=== PATIENT | male | born 1990 | race Caucasian/White ===

== ENCOUNTER 2019-01-26 14:37 | Inpatient (IN) | payer MEDICAID, SELFPAY ==
[2019-01-26 15:00] VITALS: BMI 26.2
[2019-01-26 15:03] VITALS: BMI 26.2
[2019-01-26 15:09] VITALS: BP 128/67; PULSE 103; RESP 18; TEMP 36.5; O2SAT 100
[2019-01-26 15:10] VITALS: BP 128/67; PULSE 103; RESP 18; TEMP 36.5
--- NOTE | 2019-01-26 15:24 | PCM.HP.STD ---
<Sheldon Cali - Last Filed: 01/26/19 15:24> Problem List (1) Heroin withdrawal Status: Acute (2) Hepatitis C Status: Chronic (3) Nicotine abuse Status: Chronic (4) Crack cocaine use Status: Chronic History of Present Illness Date of Admission: 01/26/19 Chief Complaint: heroin withdrawal The patient is a 28 year old M with past medical history of many years of heroin abuse, crack cocaine abuse, nicotine abuse, hepatitis C, untreated, who presented to the medical stabilization program for drug abuse requesting help with detox for heroin, currently in opiate withdrawal. His current symptoms include body aches and pains, nausea, diarrhea. He has been using heroin since getting out of [facility] about 6 weeks ago. He is using about one third of a gram per day. His last use was about 7 PM last night he also used crack last night about 1 hit, however he normally does not use this. He also smokes cigarettes about 1 and 1/2 packs/day. He denies alcohol use or other drug use. He last went through detox in 2009 at [facility]. He was sober about 6 months at the [facility]. He is currently homeless and is considering a [facility] house at discharge. [] Past Medical History Past Medical History (Chronic Problems): Chronic Problems Hepatitis C (Chronic) Nicotine abuse (Chronic) Crack cocaine use (Chronic) Allergies No Known Allergies Allergy (Verified 01/26/19 15:00) Home Medications: Ambulatory Orders Medication Instructions Recorded NK 01/26/19 Surgical History: no surgical history Psychiatric History: No pertinent psych hx Lives: Homeless Smoking Status: Current every day smoker Tobacco Use: Cigarettes Alcohol: None Drugs: Cocaine, Heroin - *Family History Maternal History Items: Cancer - colon Paternal History Items: Heart Disease Review of Systems Constitutional: Denies: Chills, Fever, Weight Change HEENT: Denies: Head Aches, Sinus Congestion, Sinus Drainage Cardiovascular: Denies: Chest Pain, Palpitations Respiratory: Denies: Cough, Shortness of breath at rest, Sputum production Gastrointestinal: Reports: Diarrhea, Nausea. Denies: Abdominal Pain, Vomiting Genitourinary: Denies: Dysuria Musculoskeletal: Reports: - - all over body aches. Denies: Joint Pain, Joint Tenderness Skin: Denies: Rash, Wounds Neurological: Denies: Numbness, Tingling, Focal weakness Psychiatric: Denies: Anxiety, Depression, Homicidal Ideations, Suicidal Ideations Hematologic/ Lymphatic: Denies: Easy Bruising, Easy Bleeding VTE Information - Inpt Only VTE Present on Admission: No VTE Mechan Device Prophylaxis: None VTE Pharm Prophylaxis ordered?: No Reason prophylaxis not ordered:: Procedure Not Indicated Patient Problems: Active and Suspected Problems Heroin withdrawal (Acute) - Physical Exam General: Alert, Oriented x3, Cooperative HEENT: Atraumatic, PERRLA, EOMI, Normocephalic Neck: Supple, No JVD, Negative Carotid Bruits Lungs: Clear to auscultation, Normal air movement Cardiovascular: Regular rate, No murmurs Abdomen: Bowel Sounds Present, Soft, Non Tender Extremities: No edema, Capillary Refill Less than 3 Seconds Skin: No rashes, No breakdown Musculoskeletal: No Tenderness to Palpation of Joints or Extremities Neurological: Cranial nerves II-XII grossly intact Psych/Mental Status: Normal Affect, Appropriate Vital Signs Temp Pulse Resp BP Pulse Ox 97.7 F L 103 H 18 128/67 H 100 01/26/19 15:09 01/26/19 15:09 01/26/19 15:09 01/26/19 15:09 01/26/19 15:09 Oxygen Delivery Method Room Air Weight: 198 lb 11.2 oz Body Mass Index (BMI) 26.2 Assessment/Plan All Active Problems Heroin withdrawal (Acute) 1. Acute opiate withdrawal-heroin. Uses 1/3 g/day, last use 7 PM, current symptoms include all over body aches, nausea, vomiting. Initiate withdrawal protocol with Subutex. He used crack last night as well however he normally does not use this. 2. Nicotine abuse-smokes 1/2 pack/day. Request patch. 3. History of hep C-not treated Medical stabilization day 1 of 4. This patient was seen by Sheldon Cali PA-C under the supervision of Doctor Marcus. <Levy Velazquez - Last Filed: 01/26/19 16:39> History of Present Illness The patient is a 28 year old M [] Past Medical History Allergies No Known Allergies Allergy (Verified 01/26/19 15:00) - Physical Exam Vital Signs Temp Pulse Resp BP Pulse Ox 97.7 F L 103 H 18 128/67 H 100 01/26/19 15:10 01/26/19 15:10 01/26/19 15:10 01/26/19 15:10 01/26/19 15:09 Oxygen Delivery Method Room Air Weight: 198 lb 11.2 oz Body Mass Index (BMI) 26.2 Code Visit Addendum: Dr. Velazquez I personally examined the patient and reviewed the chart. I agree with the above. 28-year-old male with a history of heroin abuse, crack cocaine abuse, nicotine abuse as well as hepatitis C who presents for opioid withdrawal. His last use was a third of a gram yesterday and is currently scoring about a 16 on CINA. Will proceed with [facility] opioid withdrawal protocol. Inpatient E&M: 47174 Init Hosp L2
--- NOTE | 2019-01-26 15:30 | HP.PCM_ITS ---
<Sheldon Cali - Last Filed: 01/26/19 15:24> Problem List (1) Heroin withdrawal Status: Acute (2) Hepatitis C Status: Chronic (3) Nicotine abuse Status: Chronic (4) Crack cocaine use Status: Chronic History of Present Illness Date of Admission: 01/26/19 Chief Complaint: heroin withdrawal The patient is a 28 year old M with past medical history of many years of heroin abuse, crack cocaine abuse, nicotine abuse, hepatitis C, untreated, who presented to the medical stabilization program for drug abuse requesting help with detox for heroin, currently in opiate withdrawal. His current symptoms include body aches and pains, nausea, diarrhea. He has been using heroin since getting out of residential about 6 weeks ago. He is using about one third of a gram per day. His last use was about 7 PM last night he also used crack last night about 1 hit, however he normally does not use this. He also smokes cigarettes about 1 and 1/2 packs/day. He denies alcohol use or other drug use. He last went through detox in 2009 at [facility]. He was sober about [facility]. He is currently homeless and is considering a nursing home house at discharge. [] Past Medical History Past Medical History (Chronic Problems): Chronic Problems Hepatitis C (Chronic) Nicotine abuse (Chronic) Crack cocaine use (Chronic) Allergies No Known Allergies Allergy (Verified 01/26/19 15:00) Home Medications: Ambulatory Orders Medication Instructions Recorded NK 01/26/19 Surgical History: no surgical history Psychiatric History: No pertinent psych hx Lives: Homeless Smoking Status: Current every day smoker Tobacco Use: Cigarettes Alcohol: None Drugs: Cocaine, Heroin - *Family History Maternal History Items: Cancer - colon Paternal History Items: Heart Disease Review of Systems Constitutional: Denies: Chills, Fever, Weight Change HEENT: Denies: Head Aches, Sinus Congestion, Sinus Drainage Cardiovascular: Denies: Chest Pain, Palpitations Respiratory: Denies: Cough, Shortness of breath at rest, Sputum production Gastrointestinal: Reports: Diarrhea, Nausea. Denies: Abdominal Pain, Vomiting Genitourinary: Denies: Dysuria Musculoskeletal: Reports: - - all over body aches. Denies: Joint Pain, Joint Tenderness Skin: Denies: Rash, Wounds Neurological: Denies: Numbness, Tingling, Focal weakness Psychiatric: Denies: Anxiety, Depression, Homicidal Ideations, Suicidal Ideations Hematologic/ Lymphatic: Denies: Easy Bruising, Easy Bleeding VTE Information - Inpt Only VTE Present on Admission: No VTE Mechan Device Prophylaxis: None VTE Pharm Prophylaxis ordered?: No Reason prophylaxis not ordered:: Procedure Not Indicated Patient Problems: Active and Suspected Problems Heroin withdrawal (Acute) - Physical Exam General: Alert, Oriented x3, Cooperative HEENT: Atraumatic, PERRLA, EOMI, Normocephalic Neck: Supple, No JVD, Negative Carotid Bruits Lungs: Clear to auscultation, Normal air movement Cardiovascular: Regular rate, No murmurs Abdomen: Bowel Sounds Present, Soft, Non Tender Extremities: No edema, Capillary Refill Less than 3 Seconds Skin: No rashes, No breakdown Musculoskeletal: No Tenderness to Palpation of Joints or Extremities Neurological: Cranial nerves II-XII grossly intact Psych/Mental Status: Normal Affect, Appropriate Vital Signs Temp Pulse Resp BP Pulse Ox 97.7 F L 103 H 18 128/67 H 100 01/26/19 15:09 01/26/19 15:09 01/26/19 15:09 01/26/19 15:09 01/26/19 15:09 Oxygen Delivery Method Room Air Weight: 198 lb 11.2 oz Body Mass Index (BMI) 26.2 Assessment/Plan All Active Problems Heroin withdrawal (Acute) 1. Acute opiate withdrawal-heroin. Uses 1/3 g/day, last use 7 PM, current symptoms include all over body aches, nausea, vomiting. Initiate withdrawal protocol with Subutex. He used crack last night as well however he normally does not use this. 2. Nicotine abuse-smokes 1/2 pack/day. Request patch. 3. History of hep C-not treated Medical stabilization day 1 of 4. This patient was seen by Sheldon Cali PA-C under the supervision of Doctor Marcus. <Levy Velazquez - Last Filed: 01/26/19 16:39> History of Present Illness The patient is a 28 year old M [] Past Medical History Allergies No Known Allergies Allergy (Verified 01/26/19 15:00) - Physical Exam Vital Signs Temp Pulse Resp BP Pulse Ox 97.7 F L 103 H 18 128/67 H 100 01/26/19 15:10 01/26/19 15:10 01/26/19 15:10 01/26/19 15:10 01/26/19 15:09 Oxygen Delivery Method Room Air Weight: 198 lb 11.2 oz Body Mass Index (BMI) 26.2 Code Visit Addendum: Dr. Velazquez I personally examined the patient and reviewed the chart. I agree with the above. 28-year-old male with a history of heroin abuse, crack cocaine abuse, nicotine abuse as well as hepatitis C who presents for opioid withdrawal. His last use was a third of a gram yesterday and is currently scoring about a 16 on CINA. Will proceed with [facility] opioid withdrawal protocol. Inpatient E&M: 54697 Init Hosp L2
[2019-01-26] MEDS: Dicyclomine 10 MG Capsule 20 MG PO (16:05)
[2019-01-26] MEDS: Methocarbamol 750 MG Tablet PO ×2 (16:05→23:44)
[2019-01-26] MEDS: Buprenorphine HCl 2 MG TAB.SUBL SL ×2 (16:05→23:44)
[2019-01-26] MEDS: cloNIDine HCl 0.1 MG Tablet PO ×2 (16:05→21:02)
--- NOTE | 2019-01-26 16:54 | CHAPLAIN ---
introduction to patient at request of [facility] staff member; pt agrees to talk more tomorrow after he gets settled into room; pt looking for spiritual and emotional support in recovery
[2019-01-26 20:23] VITALS: BP 134/82; PULSE 84; RESP 16; TEMP 36.8
[2019-01-26] MEDS: hydrOXYzine PAM 25 MG Capsule 50 MG PO (23:44)
[2019-01-27] VITALS (9 sets, daily range): BP systolic 112–134; BP diastolic 67–79; PULSE 70–85; RESP 12–20; TEMP 36.2–36.8; O2SAT 100
[2019-01-27] MEDS: Buprenorphine HCl 2 MG TAB.SUBL SL ×3 (07:19→23:27)
[2019-01-27] MEDS: Pramipexole Di-HCl 0.25 MG Tablet PO ×2 (09:25→23:27)
[2019-01-27] MEDS: Methocarbamol 750 MG Tablet PO ×3 (09:25→23:27)
[2019-01-27] MEDS: hydrOXYzine PAM 25 MG Capsule 50 MG PO ×3 (09:27→23:27)
--- NOTE | 2019-01-27 09:34 | PN_ITS ---
Patient Problems: Active and Suspected Problems Heroin withdrawal (Acute) Subjective: Feels better. Vitals/I&O's: Vital Signs Temp Pulse Resp BP Pulse Ox 36.6 C 84 13 124/78 H 100 01/27/19 09:14 01/27/19 09:14 01/27/19 09:14 01/27/19 09:14 01/27/19 09:10 Oxygen Delivery Method Room Air Weight: 90.129 kg Body Mass Index (BMI) 26.2 Intake and Output for Last 24 Hours 01/25/19 01/26/19 01/27/19 23:59 23:59 23:59 Intake Total 1180 / 1180 440 / 440 Balance 1180 / 1180 440 / 440 General: Alert, No apparent distress HEENT: Atraumatic, Normocephalic Oral: Moist Mucosa, No Gingival or Mucosal Lesions/ Ulcerations Neck: No Nodes, Thyroid Normal Size and Texture Lungs: Clear to auscultation, Normal air movement, No rhonchi, No wheeze Cardiovascular: Regular rate, Regular Rhythm, Normal S1, Normal S2, No murmurs Abdomen: Bowel Sounds Present, Soft, Non Tender, Non-Distended, No Hepato- splenomegaly Extremities: No edema, No Calf Tenderness Psych/Mental Status: Normal Affect, Appropriate Current Medications Buprenorphine HCl (Buprenorphine Hcl) 4 mg SL Q8H ANDREY; Taper Stop: 01/29/19 19:44 Last Admin: 01/27/19 07:19 Dose: 4 mg Clonidine (Catapres) 0.1 mg PO Q2H PRN PRN PRN Reason: Hot/Cold Sweats or Anxiety Last Admin: 01/26/19 21:02 Dose: 0.1 mg Dicyclomine HCl (Bentyl) 20 mg PO Q6H PRN PRN PRN Reason: Abdomnial Discomfort Last Admin: 01/26/19 16:05 Dose: 20 mg Hydroxyzine Pamoate (Vistaril Pamoate Capsule) 50 mg PO Q6H PRN PRN PRN Reason: Mild Anxiety Last Admin: 01/27/19 09:27 Dose: 50 mg Magnesium Hydroxide (Milk Of Magnesia) 30 ml PO DAILY PRN PRN PRN Reason: Constipation Methocarbamol (Methocarbamol) 750 mg PO Q6H PRN PRN PRN Reason: Muscle Aches Last Admin: 01/27/19 09:25 Dose: 750 mg Nicotine (Nicoderm Cq (Pbkc)) 21 mg TRANSDERM. DAILY ANDREY Last Admin: 01/27/19 09:28 Dose: 21 mg Pramipexole Dihydrochloride (Mirapex) 0.25 mg PO Q12H PRN PRN PRN Reason: Restless Legs Last Admin: 01/27/19 09:25 Dose: 0.25 mg Medical Necessity - Tobacco Use Smoking Status: Current every day smoker Tobacco Use: Cigarettes Assessment/Plan All Active Problems Heroin withdrawal (Acute) 1. Acute heroin withdrawal: Patient on buprenorphine taper for management. Patient have other medications to help with somatic complaints. [facility] to assist with outpatient follow-up upon discharge. Code Visit Inpatient E&M: 13229 Subs Hosp L2
[2019-01-27] MEDS: cloNIDine HCl 0.1 MG Tablet PO ×4 (12:28→23:27)
[2019-01-28 02:20] VITALS: BP 111/72; PULSE 87; RESP 16; TEMP 36.5
[2019-01-28] MEDS: cloNIDine HCl 0.1 MG Tablet PO ×3 (02:22→19:43)
[2019-01-28] MEDS: Buprenorphine HCl 2 MG TAB.SUBL SL ×2 (06:56→19:40)
[2019-01-28 07:26] VITALS: BP 111/67; PULSE 70; RESP 16; TEMP 36.5; O2SAT 100
[2019-01-28] MEDS: hydrOXYzine PAM 25 MG Capsule 50 MG PO ×2 (07:34→19:43)
[2019-01-28] MEDS: Methocarbamol 750 MG Tablet PO ×2 (07:34→14:08)
[2019-01-28] MEDS: Dicyclomine 10 MG Capsule 20 MG PO (07:34)
--- NOTE | 2019-01-28 09:30 | PN_ITS ---
Patient Problems: Active and Suspected Problems Heroin withdrawal (Acute) Subjective: Feeling somewhat better, though still with myalgias, nausea, restless legs. Vitals/I&O's: Vital Signs Temp Pulse Resp BP Pulse Ox 36.5 C L 70 16 111/67 100 01/28/19 07:26 01/28/19 07:26 01/28/19 07:26 01/28/19 07:26 01/28/19 07:26 Oxygen Delivery Method Room Air Weight: 90.129 kg Body Mass Index (BMI) 26.2 Intake and Output for Last 24 Hours 01/26/19 01/27/19 01/28/19 23:59 23:59 23:59 Intake Total 1180 / 1180 440 / 440 Balance 1180 / 1180 440 / 440 General: Alert, No apparent distress HEENT: Atraumatic, Normocephalic Oral: Moist Mucosa, No Gingival or Mucosal Lesions/ Ulcerations Neck: No Nodes, Thyroid Normal Size and Texture Lungs: Clear to auscultation, Normal air movement, No rhonchi, No wheeze Cardiovascular: Regular rate, Regular Rhythm, Normal S1, Normal S2 Abdomen: Bowel Sounds Present, Soft, Non Tender, Non-Distended, No Hepato- splenomegaly Extremities: No edema, No Calf Tenderness Skin: No rashes, No breakdown Musculoskeletal: No Tenderness to Palpation of Joints or Extremities, No Muscle Wasting Psych/Mental Status: Normal Affect, Appropriate Current Medications Buprenorphine HCl (Buprenorphine Hcl) 2 mg SL Q12H ANDREY; Taper Stop: 01/29/19 19:44 Last Admin: 01/28/19 06:56 Dose: 2 mg Clonidine (Catapres) 0.1 mg PO Q2H PRN PRN PRN Reason: Hot/Cold Sweats or Anxiety Last Admin: 01/28/19 02:22 Dose: 0.1 mg Dicyclomine HCl (Bentyl) 20 mg PO Q6H PRN PRN PRN Reason: Abdomnial Discomfort Last Admin: 01/28/19 07:34 Dose: 20 mg Hydroxyzine Pamoate (Vistaril Pamoate Capsule) 50 mg PO Q6H PRN PRN PRN Reason: Mild Anxiety Last Admin: 01/28/19 07:34 Dose: 50 mg Magnesium Hydroxide (Milk Of Magnesia) 30 ml PO DAILY PRN PRN PRN Reason: Constipation Methocarbamol (Methocarbamol) 750 mg PO Q6H PRN PRN PRN Reason: Muscle Aches Last Admin: 01/28/19 07:34 Dose: 750 mg Nicotine (Nicoderm Cq (Pbkc)) 21 mg TRANSDERM. DAILY ANDREY Last Admin: 01/28/19 07:34 Dose: 21 mg Pramipexole Dihydrochloride (Mirapex) 0.25 mg PO Q12H PRN PRN PRN Reason: Restless Legs Last Admin: 01/27/19 23:27 Dose: 0.25 mg Medical Necessity - Tobacco Use Smoking Status: Current every day smoker Tobacco Use: Cigarettes Assessment/Plan All Active Problems Heroin withdrawal (Acute) 1. Acute heroin withdrawal: Patient on buprenorphine taper for management. Patient have other medications to help with somatic complaints. [facility] to assist with outpatient follow-up upon discharge. Anticipate discharge on 01/29. Code Visit Inpatient E&M: 31750 Subs Hosp L2
[2019-01-28 14:04] VITALS: BP 113/74; PULSE 86; RESP 16; TEMP 36.8; O2SAT 100
[2019-01-28] MEDS: Pramipexole Di-HCl 0.25 MG Tablet PO (14:08)
[2019-01-28 20:00] VITALS: BP 114/61; PULSE 80; RESP 18; TEMP 36.9
[2019-01-29] MEDS: Buprenorphine HCl 2 MG TAB.SUBL SL (06:51)
--- NOTE | 2019-01-29 07:52 | PCM.DC ---
- Discharge Diagnoses Current Active Problems: Current Active and Chronic Problems Heroin withdrawal (Acute) Hepatitis C (Chronic) Nicotine abuse (Chronic) Crack cocaine use (Chronic) You will use the following diet at home:: No restrictions Your food should be the consistency of: Regular Allergies/Adverse Reactions: Allergies No Known Allergies Allergy (Verified 01/26/19 15:00) Medications to take at Discharge Ibuprofen 2 - 3 mg PO Q6H PRN #1 tablet 01/29/19 The following prescriptions were given: Ibuprofen 2 - 3 mg PO Q6H PRN #1 tablet PRN Reason: pain. muscle aches. Test Results: Test results from this visit will be discussed in further detail at your follow-up appointment, if applicable. Please Follow Up With: [facility] When: this week Proposed Discharge Date: 01/29/19
--- NOTE | 2019-01-29 07:55 | DCINST_ITS ---
- Discharge Diagnoses Current Active Problems: Current Active and Chronic Problems Heroin withdrawal (Acute) Hepatitis C (Chronic) Nicotine abuse (Chronic) Crack cocaine use (Chronic) You will use the following diet at home:: No restrictions Your food should be the consistency of: Regular Allergies/Adverse Reactions: Allergies No Known Allergies Allergy (Verified 01/26/19 15:00) Medications to take at Discharge Ibuprofen 2 - 3 mg PO Q6H PRN #1 tablet 01/29/19 The following prescriptions were given: Ibuprofen 2 - 3 mg PO Q6H PRN #1 tablet PRN Reason: pain. muscle aches. Test Results: Test results from this visit will be discussed in further detail at your follow- up appointment, if applicable. Please Follow Up With: [facility] When: this week Proposed Discharge Date: 01/29/19
--- NOTE | 2019-01-29 07:55 | PCM.DC.SUM ---
Discharge Date and Diagnosis - Problem List Patient Problems: Active and Suspected Problems Heroin withdrawal (Acute) Date of Admission: 01/26/19 Date of Discharge: 01/29/19 - Primary Discharge Diagnosis Active and Suspected Problems Heroin withdrawal (Acute) - Secondary Discharge Diagnosis Chronic Problems Hepatitis C (Chronic) Nicotine abuse (Chronic) Crack cocaine use (Chronic) Hospital Course and Treatment Operations: None Procedures: None Summary of Care Provided: The patient is a 28 year old M who is an IV heroin user. Presents Via [facility] for acute heroin withdrawal. Patient was initiated on buprenorphine taper which stopped this morning. Patient did have some myalgias, restless leg but symptoms though still ongoing, are better. Patient discussed with [facility] about outpatient options and the plan is for him to go to the [facility] in [place]. Today, the patient will go to his mother's apartment and next week will go to the [facility]. [] Patient Problems: Active and Suspected Problems Heroin withdrawal (Acute) - Physical Exam General: Alert, No apparent distress HEENT: Atraumatic, Normocephalic Neurological: Coordination normal Psych/Mental Status: Normal Affect, Appropriate Vital Signs Temp Pulse Resp BP Pulse Ox 36.9 C 80 18 114/61 100 01/28/19 20:00 01/28/19 20:00 01/28/19 20:00 01/28/19 20:00 01/28/19 14:04 Oxygen Delivery Method Room Air Weight: 90.129 kg Body Mass Index (BMI) 26.2 Intake and Output for Last 24 Hours 01/27/19 01/28/19 01/29/19 23:59 23:59 23:59 Intake Total 440 / 440 Balance 440 / 440 Discharge Diet: No Restrictions Discharge Activity: Return to Normal Activity Home Medications: Medications to take at Discharge Ibuprofen 2 - 3 mg PO Q6H PRN #1 tablet 01/29/19 Following Prescrptions Were Given to Patient: Ibuprofen 2 - 3 mg PO Q6H PRN #1 tablet PRN Reason: pain. muscle aches. Please Follow Up With: [facility] When: this week Disposition: Home Minutes spent on discharge:: 24 Patient Condition:: Good Medical Necessity - Tobacco Use Smoking Status: Current every day smoker Tobacco Use: Cigarettes Meaningful Use Info Meaningful Use Diagnoses (Choose all that apply): None applicable Code Visit Inpatient E&M: 75083 Disch Hosp
[2019-01-29 08:13] VITALS: BP 117/71; PULSE 82; RESP 16; TEMP 36.8; O2SAT 100
--- NOTE | 2019-01-29 08:33 | NURSING ---
[facility] CALLED AND TRANSPORTATION SET UP FOR PT TO BE DISCHARGED. [employer] TIME BETWEEN NOW AND 1123. INFORMED [facility] TO CALL PT AND CHARGE NURSE WHEN TAXI ARRIVES SO PT CAN BE TAKEN TO DOOR
== END 2019-01-29 09:04 | disposition home or self-care (01) | DRG 773 ==
LOC: MS2 01-27 07:10 → MS3 01-28 16:35
PROVIDERS: Admitting Provider Family Medicine; Referring Provider Family Medicine
DX: F11.23 Opioid dependence with withdrawal (principal); F17.210 Nicotine dependence, cigarettes, uncomplicated; B19.20 Unspecified viral hepatitis C without hepatic coma; F14.90 Cocaine use, unspecified, uncomplicated

== ENCOUNTER 2019-03-20 10:36 | Observation (INO) | payer MEDICAID, SELFPAY ==
[2019-03-20 10:52] VITALS: BMI 24.7; BMI 24.8
[2019-03-20 11:03] VITALS: BP 122/51; PULSE 73; RESP 18; TEMP 36.7
--- NOTE | 2019-03-20 11:38 | PCM.HP.STD ---
Problem List (1) Heroin withdrawal Status: Acute History of Present Illness Date of Admission: 03/20/19 Chief Complaint: nausea. The patient is a 29 year old M presents seeking treatment for heroin withdrawal. Last use was at 0100 today. Since then, he has been nauseated, tremulous, restless legs, yawns, rhinitis. Patient continues to inject heroin. Similar symptoms when he was in for heroin withdrawal in January.[] Past Medical History Past Medical History (Chronic Problems): Chronic Problems Hepatitis C (Chronic) Nicotine abuse (Chronic) Crack cocaine use (Chronic) Allergies No Known Allergies Allergy (Verified 01/26/19 15:00) Home Medications: Ambulatory Orders Medication Instructions Recorded Ibuprofen 2 - 3 mg PO Q6H PRN #1 tablet 01/29/19 Surgical History: no surgical history Psychiatric History: No pertinent psych hx Smoking Status: Heavy Smoker (>10/day) Tobacco Use: Cigarettes Alcohol: None Drugs: Marijuana, - - methamphetamines - *Family History Maternal History Items: Cancer - colon Paternal History Items: Heart Disease Review of Systems Constitutional: Reports: Chills. Denies: Anorexia, Fever Eyes: Denies: Blurred vision, Double vision HEENT: Denies: Head Aches, Sinus Congestion, Sinus Drainage Cardiovascular: Denies: Chest Pain, Palpitations Respiratory: Denies: Cough, Shortness of breath at rest, Sputum production Gastrointestinal: Denies: Abdominal Pain, Nausea, Vomiting Genitourinary: Denies: Dysuria Musculoskeletal: Denies: Joint Pain, Joint Tenderness Skin: Denies: Dryness, Jaundice Neurological: Denies: Numbness, Tingling, Focal weakness Psychiatric: Denies: Anxiety, Depression Hematologic/ Lymphatic: Denies: Easy Bruising, Easy Bleeding, Hx of blood clot VTE Information - Inpt Only VTE Present on Admission: No VTE Mechan Device Prophylaxis: None VTE Pharm Prophylaxis ordered?: No Reason prophylaxis not ordered:: Procedure Not Indicated - Physical Exam General: Alert, Cooperative, No apparent distress HEENT: Atraumatic, Normocephalic Oral: Moist Mucosa, No Gingival or Mucosal Lesions/ Ulcerations Neck: No Nodes, Thyroid Normal Size and Texture Lungs: Clear to auscultation, Normal air movement, No rhonchi, No wheeze Cardiovascular: Regular rate, Regular Rhythm, Normal S1, Normal S2, No murmurs Abdomen: Bowel Sounds Present, Soft, Non Tender, Non-Distended, No Hepato-splenomegaly Extremities: No edema, No Calf Tenderness Skin: No rashes, No breakdown, - - numerous tattoos. Psych/Mental Status: Normal Affect, Appropriate Weight: 85.275 kg Body Mass Index (BMI) 24.7 Assessment/Plan All Active Problems Heroin withdrawal (Acute) 1. acute heroin withdrawal start buprenorphine taper other medications to help with somatic complaints [facility] to facilitate outpt treatment 2. polysubstance abuse complicates long-term abstinence 3. tobacco abuse nicotine patch. 4. VTE proph: not indicated. low risk. Code Visit Inpatient E&M: 74570 Init Hosp L2
--- NOTE | 2019-03-20 11:42 | HP.PCM_ITS ---
Problem List (1) Heroin withdrawal Status: Acute History of Present Illness Date of Admission: 03/20/19 Chief Complaint: nausea. The patient is a 29 year old M presents seeking treatment for heroin withdrawal. Last use was at 0100 today. Since then, he has been nauseated, tremulous, restless legs, yawns, rhinitis. Patient continues to inject heroin. Similar symptoms when he was in for heroin withdrawal in January.[] Past Medical History Past Medical History (Chronic Problems): Chronic Problems Hepatitis C (Chronic) Nicotine abuse (Chronic) Crack cocaine use (Chronic) Allergies No Known Allergies Allergy (Verified 01/26/19 15:00) Home Medications: Ambulatory Orders Medication Instructions Recorded Ibuprofen 2 - 3 mg PO Q6H PRN #1 tablet 01/29/19 Surgical History: no surgical history Psychiatric History: No pertinent psych hx Smoking Status: Heavy Smoker (>10/day) Tobacco Use: Cigarettes Alcohol: None Drugs: Marijuana, - - methamphetamines - *Family History Maternal History Items: Cancer - colon Paternal History Items: Heart Disease Review of Systems Constitutional: Reports: Chills. Denies: Anorexia, Fever Eyes: Denies: Blurred vision, Double vision HEENT: Denies: Head Aches, Sinus Congestion, Sinus Drainage Cardiovascular: Denies: Chest Pain, Palpitations Respiratory: Denies: Cough, Shortness of breath at rest, Sputum production Gastrointestinal: Denies: Abdominal Pain, Nausea, Vomiting Genitourinary: Denies: Dysuria Musculoskeletal: Denies: Joint Pain, Joint Tenderness Skin: Denies: Dryness, Jaundice Neurological: Denies: Numbness, Tingling, Focal weakness Psychiatric: Denies: Anxiety, Depression Hematologic/ Lymphatic: Denies: Easy Bruising, Easy Bleeding, Hx of blood clot VTE Information - Inpt Only VTE Present on Admission: No VTE Mechan Device Prophylaxis: None VTE Pharm Prophylaxis ordered?: No Reason prophylaxis not ordered:: Procedure Not Indicated - Physical Exam General: Alert, Cooperative, No apparent distress HEENT: Atraumatic, Normocephalic Oral: Moist Mucosa, No Gingival or Mucosal Lesions/ Ulcerations Neck: No Nodes, Thyroid Normal Size and Texture Lungs: Clear to auscultation, Normal air movement, No rhonchi, No wheeze Cardiovascular: Regular rate, Regular Rhythm, Normal S1, Normal S2, No murmurs Abdomen: Bowel Sounds Present, Soft, Non Tender, Non-Distended, No Hepato- splenomegaly Extremities: No edema, No Calf Tenderness Skin: No rashes, No breakdown, - - numerous tattoos. Psych/Mental Status: Normal Affect, Appropriate Weight: 85.275 kg Body Mass Index (BMI) 24.7 Assessment/Plan All Active Problems Heroin withdrawal (Acute) 1. acute heroin withdrawal * start buprenorphine taper * other medications to help with somatic complaints * [facility] to facilitate outpt treatment 2. polysubstance abuse * complicates long-term abstinence 3. tobacco abuse * nicotine patch. 4. VTE proph: not indicated. low risk. Code Visit Inpatient E&M: 28495 Init Hosp L2
[2019-03-20] MEDS: Buprenorphine HCl 2 MG TAB.SUBL 4 MG SL (12:21)
--- NOTE | 2019-03-20 13:40 | PCM.DC.SUM ---
Discharge Date and Diagnosis Date of Admission: 03/20/19 Date of Discharge: 03/20/19 - Secondary Discharge Diagnosis Chronic Problems Hepatitis C (Chronic) Nicotine abuse (Chronic) Crack cocaine use (Chronic) Hospital Course and Treatment Operations: None Procedures: None Summary of Care Provided: The patient is a 29 year old M presents seeking treatment for heroin withdrawal. Patient was brought in Via [facility] and patient was seen by me and talked about buprenorphine as well as other medications to help another somatic issues. Patient left AGAINST MEDICAL ADVICE. [] - Physical Exam Weight: 85.275 kg Body Mass Index (BMI) 24.7 Laboratory Tests Past 24 Hrs 03/20/19 03/20/19 12:15 13:13 Sodium Cancelled Pending Potassium Cancelled Pending Chloride Cancelled Pending Carbon Dioxide Cancelled Pending Anion Gap Cancelled Pending BUN Cancelled Pending Creatinine Cancelled Pending Estim Creat Clear Calc Cancelled Est GFR (MDRD) Af Amer Cancelled Pending Est GFR (MDRD) Non-Af Cancelled Pending BUN/Creatinine Ratio Cancelled Pending Glucose Cancelled Pending Calcium Cancelled Pending Total Bilirubin Cancelled Pending AST Cancelled Pending ALT Cancelled Pending Alkaline Phosphatase Cancelled Pending Total Protein Cancelled Pending Albumin Cancelled Pending Globulin Cancelled Albumin/Globulin Ratio Cancelled Home Medications: Medications to take at Discharge Ibuprofen 2 - 3 mg PO Q6H PRN #1 tablet 01/29/19 Primary Care Physician: Care Physician,No Primary [Primary Care Provider] - Disposition: Against Medical Advice Minutes spent on discharge:: 28 Patient Condition:: Stable Medical Necessity - Tobacco Use Smoking Status: Heavy Smoker (>10/day) Tobacco Use: Cigarettes Meaningful Use Info Meaningful Use Diagnoses (Choose all that apply): None applicable Code Visit OBSV E&M: 08439 Observ/hosp same date L2
== END 2019-03-20 13:35 | disposition left against medical advice (07) ==
DX: F11.23 Opioid dependence with withdrawal (principal); B18.2 Chronic viral hepatitis C; F17.210 Nicotine dependence, cigarettes, uncomplicated; F19.10 Other psychoactive substance abuse, uncomplicated
CPT/HCPCS: 99218; G0378; G0379

== ENCOUNTER 2021-04-11 10:48 | Observation (INO) | payer MEDICAID, SELFPAY ==
[2019-03-20 10:52] VITALS: BMI 24.7
[2021-04-11] VITALS (7 sets, daily range): BP systolic 116–145; BP diastolic 65–92; PULSE 81–99; RESP 15–20; TEMP 36.1–37.2; O2SAT 97–100; BMI 23.1; BMI 26.3
--- NOTE | 2021-04-11 10:57 | EX.ED.SAOD ---
HPI History of Present Illness Chief Complaint: Substance Abuse Informant: patient Onset/Context/Timing Onset: Month(s) Context: Gradual Onset Timing: Continuous Current Severity: Moderate Maximum Severity: Moderate Associated Symptoms Associated Symptoms: Positive for diarrhea* Narrative Narrative: The patient is a 31-year-old male with medical history significant for heroin abuse and benzodiazepine abuse who presents to the emergency department questing detox. The patient states that he injects heroin almost daily. He states that he also snorts Xanax almost daily. He states his been using for over a year. He states he is been through detox once before and was able to stay clean for about a month. He states that he normally injects in his arm. He denies any fever or chills. He denies any other systemic complaints. [facility] Medical History (Updated 04/11/21 @ 12:[address] Yang Moya MD) Heroin abuse Opioid abuse Home Medications NK 04/11/21 [History Last Taken Unknown] Allergy/AdvReac Type Severity Reaction Status Date / Time No Known Allergies Allergy Verified 04/11/21 10:50 Family History (Updated 04/11/21 @ 12:[address] Yang Moya MD) Mother Anxiety and depression Social History Smoking Status: Heavy Smoker (>10/day) ROS ROS ED Constitutional Constitutional ED: Denies chills or fever(s) Eyes Eyes: Denies blurry vision or change in vision ENT ENT ED: Denies ear pain or sore throat Cardiovascular Cardiovascular: Denies chest pain or palpitations Respiratory/Chest Respiratory/Chest: Denies cough, dyspnea or dyspnea on exertion Gastrointestinal Gastrointestinal: Reports nausea Genitourinary Genitourinary ED: Denies dysuria or urinary frequency Musculoskeletal Musculoskeletal: Denies arthralgias or myalgias Integumentary Denies rash Neurologic Neurologic: Denies headache(s) or paresthesias Psychiatric Psychiatric: Denies anxiety or depression Endocrine Endocrinology: Denies polydipsia or polyuria Allergic/Immunologic Allergic/Immunologic ED: Denies urticaria EXAM Physical Exam Const Vital Signs: 04/11/21 10:48 04/11/21 12:17 Temperature 96.9 F L 98.9 F Temperature Source Temporal Temporal Pulse Rate 86 87 Respiratory Rate 15 16 Blood Pressure 140/73 H 142/92 H Blood Pressure Mean 95 108 Pulse Ox 100 100 Oxygen Delivery Method Room Air Room Air Positive well nourished and well developed General Appearance ED: well developed HEENT Reports normocephalic, head/scalp atraumatic and moist mucous membranes Eyes PERRL and EOMs intact bilaterally Neck no lymphadenopathy and supple General: Negative for tenderness Chest Wall inspection of chest normal Resp normal respiratory effort and clear to auscultation bilaterally Cardio regular rate, regular rhythm and no murmurs GI normal to inspection, nondistended, normoactive bowel sounds Palpation: Negative for tender, guarding or rebound tenderness present Back/Spine no CVA tenderness Cervical Spine: Negative for cervical spine tenderness Thoracic Spine / Upper Back: Negative for thoracic spinal tenderness Extremity normal to inspection Extremity Narrative: Multiple track luciano on the right upper extremity. Minimal erythema without abscess. General Extremety ED: Negative for tenderness Neuro oriented x3 and CN's II-XII intact bilaterally Neuro Narrative: No focal deficits appreciated. Sensorium / Orientation: alert Psych mental status grossly normal Skin no rashes or lesions noted, no wounds and skin turgor normal MDM MDM MDM Narrative Medical decision making narrative: The patient presents requesting detox from heroin benzodiazepines. Metabolic work-up was pursued. Patient has not had tachycardic or significantly hypertensive. Patient was discussed with the hospitalist for inpatient detox. Patient was seen by the hospitalist. He did have some redness of the arms. There was no focal abscess. We did obtain ultrasound which shows what appears to be a chronically occluded venous thrombus. The patient will be admitted. Impression 1. Opiate dependence 2. Benzodiazepine dependence Lab Data Attestation: I reviewed the patient's lab results. Labs: Laboratory Results - last 24 hr 04/11/21 04/11/21 04/11/21 11:05 11:45 11:45 WBC 9.4 RBC 4.95 Hgb 12.6 L Hct 40.4 MCV 81.6 MCH 25.5 L MCHC 31.2 L RDW Std Deviation 46.5 H RDW Coeff of Rush 15.5 H Plt Count 187 MPV 11.6 Immature Gran % (Auto) 0.600 Neut % (Auto) 56.4 Lymph % (Auto) 25.9 [place] % (Auto) 14.4 H Eos % (Auto) 2.0 Baso % (Auto) 0.7 Absolute Neuts (auto) 5.3 Absolute Lymphs (auto) 2.44 Nucleated RBC % 0 Sodium 135 L Potassium 3.6 Chloride 102 Carbon Dioxide 27.0 Anion Gap 6 BUN 5 L Creatinine 0.93 Estim Creat Clear Calc 131.59 Est GFR (MDRD) Af Amer 124 Est GFR (MDRD) Non-Af 103 BUN/Creatinine Ratio 5.4 L Glucose 83 Calcium 8.4 L Total Bilirubin 0.70 AST 85 H ALT 161 H Alkaline Phosphatase 213 H Total Protein 8.1 Albumin 3.5 Globulin 4.6 H Albumin/Globulin Ratio 0.8 L Urine Opiates Screen POSITIVE H Urine Methadone Screen NEGATIVE Ur Barbiturates Screen NEGATIVE Ur Phencyclidine Scrn NEGATIVE Ur Amphetamines Screen NEGATIVE U Methamphetamin-MDMA NEGATIVE U Benzodiazepines Scrn NEGATIVE Urine Cocaine Screen NEGATIVE U Cannabinoids Screen POSITIVE H Ur Drug Screen Comment Ethyl Alcohol 04/11/21 11:45 WBC RBC Hgb Hct MCV MCH MCHC RDW Std Deviation RDW Coeff of [place] Plt Count MPV Immature Gran % (Auto) Neut % (Auto) Lymph % (Auto) [place] % (Auto) Eos % (Auto) Baso % (Auto) Absolute Neuts (auto) Absolute Lymphs (auto) Nucleated RBC % Sodium Potassium Chloride Carbon Dioxide Anion Gap BUN Creatinine Estim Creat Clear Calc Est GFR (MDRD) Af Amer Est GFR (MDRD) Non-Af BUN/Creatinine Ratio Glucose Calcium Total Bilirubin AST ALT Alkaline Phosphatase Total Protein Albumin Globulin Albumin/Globulin Ratio Urine Opiates Screen Urine Methadone Screen Ur Barbiturates Screen Ur Phencyclidine Scrn Ur Amphetamines Screen U Methamphetamin-MDMA U Benzodiazepines Scrn Urine Cocaine Screen U Cannabinoids Screen Ur Drug Screen Comment Ethyl Alcohol < 3.0 Discharge Plan Triage Chief Complaint: Substance Abuse ED Provider: Tone Maldonado Dx/Rx/DC Orders Primary Care Provider: Care Physician,No Primary
[2021-04-11 11:40] LABS: Amphetamine Urine VISTA NEGATIVE (<1000 ng/mL); Barbiturate Urine VISTA NEGATIVE (< 200 ng/mL); Benzodiazepine Urine VISTA NEGATIVE (< 200 ng/mL); Cocaine Urine VISTA NEGATIVE (< 300 ng/mL); Ecstacy Urine VISTA NEGATIVE (< 500 ng/mL); Methadone Urine VISTA NEGATIVE (< 300 ng/mL); PCP Urine VISTA NEGATIVE (< 25 ng/mL); THC Urine VISTA POSITIVE (< 50 ng/mL); Vista UDS pH Range 6
[2021-04-11 12:00] LABS: Absolute Lymphocyte Count 2.44 X10^3/uL (0.83-4.51); Absolute Neutrophil Count 5.3 X10^3/uL (2.0-7.7); Basophil# 0.07 X10^3/uL; Basophil% 0.7 % (0-1); Eosinophil# 0.19 X10^3/uL; Hematocrit 40.4 % (40-54); Hemoglobin 12.6 g/dL (13.0-16.5); Lymphocyte # 2.44 X10^3/ul (0.83-4.51); Lymphocyte % 25.9 % (19-41); Mean Corp Hgb Conc 31.2 g/dL (32-36); Mean Corpuscular Hgb 25.5 pg (27.0-32.0); Mean Corpuscular Volume 81.6 fL (80-94); Mean Platelet Vol. 11.6 fl (6.2-12.0); Monocyte# 1.36 X10^3/uL; Monocyte% 14.4 % (0-10); NRBC Flagged by Analyzer 0 % (0-5); Neutrophil # 5.31 X10^3/uL (2.7-7.7); Neutrophil % 56.4 % (47-70); Platelet Count 187 K/mm3 (150-450); RBC Distribution Width CV 15.5 % (11.6-14.6); RBC Distribution Width SD 46.5 fl (35.1-43.9); Red Blood Count 4.95 M/mm3 (4.6-6.2); White Blood Count 9.4 K/mm3 (4.4-11.0)
[2021-04-11 12:17] LABS: ALB/GLOB Ratio 0.8 RATIO (0.9-2.4); AST(SGOT) 85 U/L (15-37); Alanine Aminotransfer ALT/SGPT 161 U/L (16-61); Albumin, Serum 3.5 g/dL (3.2-5.0); Alkaline Phosphatase 213 U/L (45-117); Anion Gap 6 (5-15); BUN 5 mg/dL (7-18); BUN/Creat Ratio 5.4 RATIO (10-20); Calcium,Total 8.4 mg/dL (8.5-10.1); Chloride 102 mmol/L (98-107); Creatinine, Serum 0.93 mg/dL (0.70-1.30); EST Glomerular Filtration Rate 103 mL/min (>60); Est Glom Filt Rate - Afr Amer 124 mL/min (>60); Estimated Creatinine Clearance 131.59 ml/min; Globulin 4.6 g/dL (2.2-4.2); Glucose 83 mg/dL (74-106); Potassium 3.6 mmol/L (3.5-5.1); Protein, Total 8.1 g/dL (6.4-8.2); Sodium Level 135 mmol/L (136-145)
--- NOTE | 2021-04-11 12:18 | VDUE_ITS ---
Reason For Study: swelling Right Proximal Left Proximal Right jugular vein is spontaneous, widely Left jugular vein is spontaneous, widely patent, phasic, with no intraluminal patent, phasic, with no intraluminal echogenicity noted. echogenicity noted. Right subclavian vein is spontaneous, widely Left subclavian vein is spontaneous, widely patent, phasic, with no intraluminal patent, phasic, with no intraluminal echogenicity noted. echogenicity noted. Right Lower Arm Left Arm Right radial vein is compressible. Left axillary vein is spontaneous, patent, Right ulnar vein is compressible. phasic, competent, compressible and Right Arm demonstrates augmentation. Right axillary vein is spontaneous, patent, Left brachial vein is compressible. phasic, competent, compressible and Left cephalic vein is compressible. demonstrates augmentation. Left basilic vein is compressible. Right brachial vein is compressible. Left Lower Arm RT cephalic V is non-compressible and small Left radial vein is compressible. is size. Left ulnar vein is compressible. Right basilic vein is compressible. VL/Venous Duplex US - Rashad Extrem Interpretation Summary No evidence for acute deep venous thrombosis bilateral upper extremities Superficial thrombophlebitis right cephalic vein Normal compressibility left cephalic and bilateral basilic veins Ordering Physician: Tone Maldonado Referring Physician: NO PCP Performed By: Reena Christine, RAISA, RVT ?
--- NOTE | 2021-04-11 12:25 | HP.PCM.HOS_ITS ---
HPI - General General Date of Admission: 04/11/21 HPI Narrative CHANTE BROUSSARD, is a 31 M with history of chronic opioid and benzodiazepine dependence and tolerance came to ER for stabilization of opioid withdrawal symptoms. He uses 3 to 4 mg IV heroin and fentanyl together in both forearms on posterior aspect along his snorting 4 mg Xanax. Patient also smokes cigarettes 1 pack/day. Sometimes e-cigarettes and cigar and marijuana use. Denies fever or chills. He has soft tissue swelling and thrombosed vein on posterior aspect of both forearms. Currently patient having aches and pain, sweating, restlessness and mild diarrhea. Heart rate 86/min, blood pressure 140/73. [facility] Medical History (Updated 04/11/21 @ 12:[address] Yang Moya MD) Heroin abuse Opioid abuse Home Medications NK 04/11/21 [History Last Taken Unknown] Allergy/AdvReac Type Severity Reaction Status Date / Time No Known Allergies Allergy Verified 04/11/21 10:50 Family History (Updated 04/11/21 @ 12:[address] Yang Moya MD) Mother Anxiety and depression Social History Smoking Status: Heavy Smoker (>10/day) ROS ROS Narrative Constitutional: Reports fatigue and weakness, malaise. HEENT: Reports systems reviewed and no addt'l complaints, except as documented Respiratory/Chest: No chest pain. Denies shortness of breath with exertion Gastrointestinal: Diarrhea. Denies coffee ground emesis, hematemesis or vomiting Genitourinary: Denies burning urination or new urinary tract symptoms Musculoskeletal: Mild muscle aches and bone pain, nonspecific diffuse in nature Neurologic: Denies seizure-like activity skin: Swelling over posterior aspect of both forearms with thrombosed veins. Endocrinology: Reports systems reviewed and no addt'l complaints, except as documented Hematologic/Lymphatic: Reports systems reviewed and no addt'l complaints, except as documented Psychiatric: Substance use as mentioned in HPI. Denies history of suicidal ideation/attempt Rest 12 ROS are negative except as mentioned in HPI Vital Signs Vital Signs Vital Signs: 04/11/21 10:48 04/11/21 12:17 Temperature 96.9 F L 98.9 F Temperature Source Temporal Temporal Pulse Rate 86 87 Respiratory Rate 15 16 Blood Pressure 140/73 H 142/92 H Blood Pressure Mean 95 108 Pulse Ox 100 100 Oxygen Delivery Method Room Air Room Air Weight Weight: 175 lb Body Mass Index (BMI) 23.1 Physical Exam Narrative General: Awake. oriented x3. HEENT: Atraumatic, PERRLA, EOMI, Normocephalic Oral: Oral mucosa is dry. No Gingival or Mucosal Lesions/ Ulcerations Neck: Supple, No JVD, Negative Carotid Bruits Lungs: Air entry diminished in bilateral lung bases. No crepitation/rhonchi Cardiovascular: Regular rate, Regular Rhythm, Normal S1, Normal S2, No murmurs. Thrombophlebitis more both forearm veins over the posterior aspect Abdomen: Bowel Sounds Present, Soft, Non Tender, Non-Distended : No renal angle tenderness. No suprapubic tenderness. Extremities: Soft tissue, thrombosed veins over the posterior aspect of muscles. No fluctuant swelling. No edema, Capillary Refill Less than 3 Seconds Skin: No rashes, No breakdown Musculoskeletal: No Tenderness to Palpation of Joints or Extremities Neurological: Cranial nerves II-XII grossly intact, Deep Tendon Reflexes 2+/4 and Symmetrical, Neuro grossly intact Psych/Mental Status: Normal Affect, Appropriate. Results Lab / Micro Data Result Diagrams: 04/11/21 11:45 04/11/21 11:45 Labs: Laboratory Results - last 24 hr 04/11/21 04/11/21 04/11/21 11:05 11:45 11:45 WBC 9.4 RBC 4.95 Hgb 12.6 L Hct 40.4 MCV 81.6 MCH 25.5 L MCHC 31.2 L RDW Std Deviation 46.5 H RDW Coeff of [place] 15.5 H Plt Count 187 MPV 11.6 Immature Gran % (Auto) 0.600 Neut % (Auto) 56.4 Lymph % (Auto) 25.9 [place] % (Auto) 14.4 H Eos % (Auto) 2.0 Baso % (Auto) 0.7 Absolute Neuts (auto) 5.3 Absolute Lymphs (auto) 2.44 Nucleated RBC % 0 Sodium 135 L Potassium 3.6 Chloride 102 Carbon Dioxide 27.0 Anion Gap 6 BUN 5 L Creatinine 0.93 Estim Creat Clear Calc 131.59 Est GFR (MDRD) Af Amer 124 Est GFR (MDRD) Non-Af 103 BUN/Creatinine Ratio 5.4 L Glucose 83 Calcium 8.4 L Total Bilirubin 0.70 AST 85 H ALT 161 H Alkaline Phosphatase 213 H Total Protein 8.1 Albumin 3.5 Globulin 4.6 H Albumin/Globulin Ratio 0.8 L Urine Opiates Screen POSITIVE H Urine Methadone Screen NEGATIVE Ur Barbiturates Screen NEGATIVE Ur Phencyclidine Scrn NEGATIVE Ur Amphetamines Screen NEGATIVE U Methamphetamin-MDMA NEGATIVE U Benzodiazepines Scrn NEGATIVE Urine Cocaine Screen NEGATIVE U Cannabinoids Screen POSITIVE H Ur Drug Screen Comment Assessment & Plan Assessment/Plan (1) Heroin withdrawal: (2) Hepatitis C: QUALIFIERS: Hepatic coma status: without hepatic coma Viral hepatitis chronicity: chronic Qualified Code(s): B18.2 - Chronic viral hepatitis C (3) Nicotine abuse: PLAN: This is a 31-year-old male admitted with acute opioid and benzodiazepine withdrawal syndrome. 1. Acute opioid withdrawal syndrome with history of chronic opioid use, depen dence and tolerance: Patient is being admitted to [facility] floor for medical stabilization. Started on buprenorphine scheduled and taper protocol along with other supportive medications as needed for control of symptoms. 2. Chronic superficial thrombophlebitis of superficial veins forearms: Discu ssed with the ER physician. Venous Doppler, verbally reported shows chronically occluded venous thrombosis. No abscess. Eliquis 2.5 mg twice daily for prophylaxis. 3. Acute benzodiazepine withdrawal syndrome: Buprenorphine supportive medications 4. Chronic cigarette and a cigarette smoker along with marijuana: On nicotine patch. 5. VTE prophylaxis: As mentioned above Charges/Coding Visit Charges Inpatient E&M: 05926 Init Hosp L3
[2021-04-11 12:30] LABS: Alcohol, Blood (Medical)-Serum < 3.0 mg/dL
--- NOTE | 2021-04-11 14:21 | CM.ED ---
SOCIAL WORK Reason for Consult: Substance Abuse Referral Source: Self-referral Patient presents to ER requesting detox from heroin and Xanax. Patient last use was last evening. Patient completed RAMP agreement with nursing. Call to [facility] Treatment NavigatorBladimir to update on patient's admission and room number. Plan: Admit to ODIN Byrnes MSW, [employer]
[2021-04-11] MEDS: cloNIDine HCl 0.1 MG Tablet PO ×2 (14:54→23:15)
[2021-04-11] MEDS: hydrOXYzine PAM 25 MG Capsule 50 MG PO ×2 (14:54→19:59)
[2021-04-11] MEDS: Methocarbamol 750 MG Tablet 1500 MG PO ×2 (14:54→21:39)
[2021-04-11] MEDS: APIXABAN 2.5 MG TABLET PO ×2 (14:55→21:39)
[2021-04-11] MEDS: Dicyclomine 10 MG Capsule 20 MG PO (14:55)
[2021-04-11] MEDS: Buprenorphine HCl 2 MG TAB.SUBL SL ×2 (16:08→23:15)
[2021-04-11] MEDS: Gabapentin 300 MG Capsule PO (18:13)
[2021-04-11] MEDS: Loperamide 2 MG Capsule PO (18:14)
[2021-04-11] MEDS: Ibuprofen 400 MG Tablet PO (18:14)
[2021-04-11] MEDS: Ondansetron 8 MG Tablet PO (19:46)
[2021-04-11] MEDS: traZODone 100 MG Tablet PO (21:39)
[2021-04-12 01:30] VITALS: BP 112/55; PULSE 75; RESP 18; TEMP 36.4; O2SAT 100
[2021-04-12] MEDS: hydrOXYzine PAM 25 MG Capsule 50 MG PO (01:39)
[2021-04-12] MEDS: Loperamide 2 MG Capsule PO (01:39)
[2021-04-12] MEDS: Dicyclomine 10 MG Capsule 20 MG PO ×2 (01:40→13:32)
[2021-04-12 05:20] VITALS: BP 122/71; PULSE 78; RESP 18; TEMP 36.6; O2SAT 100
[2021-04-12] MEDS: Gabapentin 300 MG Capsule PO (05:26)
[2021-04-12] MEDS: Ibuprofen 400 MG Tablet PO (05:26)
[2021-04-12] MEDS: Methocarbamol 750 MG Tablet 1500 MG PO ×3 (05:27→21:37)
[2021-04-12] MEDS: Ondansetron 8 MG Tablet PO ×2 (05:27→09:14)
--- NOTE | 2021-04-12 06:33 | PN_ITS ---
Progress Note Patient overnight with complaints of ongoing withdrawal symptoms including fatigue, malaise, restlessness, abdominal cramping, nausea and occasional loose stool although has been lessening. Patient remains amenable to continued withdrawal treatment and continues to note intent for clean status. Patient denies fevers, chills, emesis, chest pain or dyspnea. Physical Exam Narrative Venous Doppler Study 04/11/21 12:18 Interpretation Summary No evidence for acute deep venous thrombosis bilateral upper extremities Superficial thrombophlebitis right cephalic vein Normal compressibility left cephalic and bilateral basilic veins Temp Pulse Resp BP Pulse Ox 97.6 F L 91 14 125/83 H 100 04/12/21 09:10 04/12/21 09:10 04/12/21 09:10 04/12/21 09:10 04/12/21 09:10 Physical Examination: General: awake, alert, oriented x 3 and cooperative, seated upright in the medical surgical bed, fatigued and uncomfortable appearing. Skin: normal color, no turgor, no icterus, no cyanosis except notable diffuse tattoos, right upper extremity with track luciano noted, mildly firm region corresponding with superficial thrombophlebitis of the right cephalic vein. HEENT: AT/NC, EOMI, PERRLA, moderately dry MM. Lungs: CTA bilaterally, moderate effort, mild decrease BL bases, no rales, ronchi or wheezing. Heart: Regular rate and rhythm; no gallop, rub audible. Abdomen: soft, mild generalized discomfort with palpation with no rebound or guarding, ND, mildly hyperactive bowel sounds. Extremities: no cyanosis, clubbing, or edema. Neurological: patient awake, alert, oriented as noted, cognitive function intact; pupils equally reactive to light and accommodation, cranial nerves II- XII grossly normal, moving all 4 extremities, no focal deficits, strength moderately global decrease secondary to acute presentation. Psychiatric: affect appears fatigued, uncomfortable appearing, no acute evidence of depressive or anxiety feelings. Assessment & Plan Assessment/Plan (1) Heroin withdrawal: PLAN: The patient is a 31 y/o M w/ PMHx: Polysubstance abuse (BZD routinely snorting xanax daily, last use on day of presentation, Opiates with heroin IV, last use on day of presentation), Tobacco use who presents [facility] ED on 04/11/21 with ongoing substance abuse, both BZD and opiates with acute withdrawal. 1. Acute BZD Withdrawal: Patient admitted to PR, routine ED labs obtained. Given interest in clean status, will initiate and continue on protocol with taper course of ativan, scheduled gabapentin for seizure prophylaxis, as needed Catapres, Bentyl, Vistaril, IV fluids, IV antiemetics, Tylenol as needed for pain. Will consult Case management for assistance for transition to next level of rehabilitation care. Patient will need to have prolonged taper at discharge. 2. Acute Opiate Withdrawal: Given patient concurrent usage of opiates, additionally initiated and continued on protocol with tapering course of Subutex, as needed tylenol, ibuprofen, bowel regimen, gabapentin, Bentyl, Vistaril, methocarbamol, clonidine, PRN nightly trazodone for insomnia, IV fluids, IV antiemetics. Once patient clinically improved and completion of taper nearing will plan consultation with case management for transition to next level of rehabilitation care. 3. Polysubstance Abuse, Chronic w/ Hepatitis C status: We will obtain HIV and hepatitis panel given significant polysubstance use to assess for co-infection. Patient currently not candidate for hep C treatment currently as needs to be clean, sober x 6 months, documented attendance NA or AA meetings, counseling and ongoing negative drug screens. 4. Tobacco use: Encourage tobacco cessation, RT consulted for education, NR ordered. 5. DVT Prophylaxis: Low risk, encourage ambulation. Visit Charges Inpatient E&M: 40470 Subs Hosp L2
[2021-04-12 09:10] VITALS: BP 125/83; PULSE 91; RESP 14; TEMP 36.4; O2SAT 100
[2021-04-12] MEDS: Buprenorphine HCl 2 MG TAB.SUBL SL ×2 (09:14→16:54)
[2021-04-12] MEDS: APIXABAN 2.5 MG TABLET PO ×2 (09:15→21:34)
[2021-04-12] MEDS: Thiamine Hydrochloride 100 MG Tablet PO (09:15)
[2021-04-12] MEDS: Folic Acid 1 MG Tablet PO (09:15)
[2021-04-12 13:23] VITALS: BP 129/71; PULSE 99; RESP 16; TEMP 36.6; O2SAT 100
[2021-04-12] MEDS: LORazepam 1 MG Tablet PO ×3 (13:32→21:34)
[2021-04-12 17:30] VITALS: BP 116/67; PULSE 98; RESP 16; TEMP 36.8; O2SAT 100
[2021-04-12] MEDS: cloNIDine HCl 0.1 MG Tablet PO (17:40)
--- NOTE | 2021-04-12 18:01 | NURSING ---
FILE SYSTEM INSTALLER states she thought she saw a vape pen in patient's room. This RN asked patient if he had a vape pen in his possession and he denies. Will continue to monitor.
[2021-04-12] MEDS: traZODone 100 MG Tablet PO (21:37)
[2021-04-12 22:13] VITALS: BP 113/67; PULSE 97; RESP 16; TEMP 36.7; O2SAT 97
[2021-04-13] MEDS: Buprenorphine HCl 2 MG TAB.SUBL SL ×3 (00:17→16:09)
[2021-04-13] MEDS: LORazepam 1 MG Tablet PO ×6 (00:17→21:22)
[2021-04-13 04:45] VITALS: BP 116/75; PULSE 92; RESP 18; TEMP 36.9; O2SAT 97
--- NOTE | 2021-04-13 06:31 | PN.HOSP_ITS ---
Subjective Subjective Patient with no acute events overnight per self and per nursing report. He notes addition of Ativan taper given concurrent Xanax abuse in addition to opiate abuse effective with symptom control as had been extremely nauseated, having abdominal cramping and discomfort, sweating with fatigue and malaise as well as agitation but those have since significantly subsided. Patient denies fevers, chills, nausea, emesis, abdominal pain, chest pain or dyspnea. Objective Data Objective Data Vital Signs: Vital Signs Temp Pulse Resp BP Pulse Ox 98.4 F 92 18 116/75 97 04/13/21 04:45 04/13/21 04:45 04/13/21 04:45 04/13/21 04:45 04/13/21 04:45 Oxygen Delivery Method Room Air Weight: 199 lb 8.293 oz Body Mass Index (BMI) 26.3 Intake & Output: Intake and Output for Last 24 Hours 04/11/21 04/12/21 04/13/21 23:59 23:59 23:59 Intake Total 420 / 420 1080 / 1380 500 / 500 Balance 420 / 420 1080 / 1380 500 / 500 Lab / Micro Data Result Diagrams: 04/11/21 11:45 04/11/21 11:45 Physical Exam Narrative Physical Examination: General: awake, alert, oriented x 3 and cooperative, laying in the MS bed, more calm, notes symptoms notably better. Skin: normal color, no turgor, no icterus, no cyanosis except notable diffuse tattoos, right upper extremity with track luciano noted, mildly firm region corresponding with superficial thrombophlebitis of the right cephalic vein. HEENT: AT/NC, EOMI, PERRLA, improved MMM. Lungs: CTA bilaterally, moderate effort, mild decrease BL bases, no rales, ronchi or wheezing. Heart: Regular rate and rhythm; no gallop, rub audible. Abdomen: soft, mild generalized discomfort with palpation with no rebound or guarding, ND, normalized bowel sounds. Extremities: no cyanosis, clubbing, or edema. Neurological: patient awake, alert, oriented as noted, cognitive function intact; pupils equally reactive to light and accommodation, cranial nerves II- XII grossly normal, moving all 4 extremities, no focal deficits, strength improved, mildly globally decreased. Psychiatric: affect appears fatigued, more comfortable appearing, no acute evidence of depressive or anxiety feelings. Assessment & Plan Assessment/Plan (1) Heroin withdrawal: PLAN: The patient is a 31 y/o M w/ PMHx: Polysubstance abuse (BZD routinely snorting xanax daily, last use on day of presentation, Opiates with heroin IV, last use on day of presentation), Tobacco use who presents to the [facility] ED on 04/11/21 with ongoing substance abuse, both BZD and opiates with acute withdrawal. 1. Acute BZD Withdrawal: Patient admitted to NH, routine ED labs obtained. Given interest in clean status, continue on protocol with taper course of ativan, scheduled gabapentin for seizure prophylaxis, as needed Catapres, Bentyl, Vistaril, IV fluids, IV antiemetics, Tylenol as needed for pain. Case management consulted for assistance for transition to next level of rehabilitation care. Patient will need to have prolonged taper at discharge. 2. Acute Opiate Withdrawal: Given patient concurrent usage of opiates, additionally initiated and continued on protocol with tapering course of Subutex, as needed tylenol, ibuprofen, bowel regimen, gabapentin, Bentyl, Vistaril, methocarbamol, clonidine, PRN nightly trazodone for insomnia, IV fluids, IV antiemetics. 3. Polysubstance Abuse, Chronic w/ Hepatitis C status: HIV pending. Refused further draws thus will not be able to obtain hepatitis panel to assess co- infection. Patient currently not candidate for hep C treatment currently as needs to be clean, sober x 6 months, documented attendance NA or AA meetings, counseling and ongoing negative drug screens. 4. Tobacco use: Encourage tobacco cessation, RT consulted for education, NR ordered. 5. DVT Prophylaxis: Low risk, encourage ambulation. Charges/Coding Visit Charges Inpatient E&M: 29264 Subs Hosp L2
[2021-04-13] MEDS: APIXABAN 2.5 MG TABLET PO ×2 (08:28→21:21)
[2021-04-13] MEDS: Folic Acid 1 MG Tablet PO (08:28)
[2021-04-13] MEDS: Thiamine Hydrochloride 100 MG Tablet PO (08:28)
[2021-04-13 10:09] VITALS: BP 123/72; PULSE 112; RESP 18; TEMP 36.7; O2SAT 99
[2021-04-13] MEDS: cloNIDine HCl 0.1 MG Tablet PO (10:16)
[2021-04-13] MEDS: Methocarbamol 750 MG Tablet 1500 MG PO ×2 (10:16→21:21)
--- NOTE | 2021-04-13 11:00 | NURSING ---
Patient was found using vape pen in room. Patient gave pen to this RN and it was locked in med drawer. Dr. Alford was notified of same and she said she would order PRN nicotine gum for patient and she will continue with POC. Patient made aware. Will continue to monitor.
[2021-04-13] MEDS: Nicotine Polacrilex 2 MG GUM PO ×2 (12:05→16:09)
[2021-04-13] MEDS: hydrOXYzine PAM 25 MG Capsule 50 MG PO (12:10)
[2021-04-13 13:54] VITALS: BP 129/68; PULSE 114; RESP 16; TEMP 37.2; O2SAT 98
[2021-04-13] MEDS: Ibuprofen 400 MG Tablet PO (16:17)
[2021-04-13] MEDS: Gabapentin 300 MG Capsule PO (16:18)
[2021-04-13 21:15] VITALS: BP 138/90; PULSE 98; RESP 18; TEMP 37.3; O2SAT 98
[2021-04-13] MEDS: traZODone 100 MG Tablet PO (21:22)
[2021-04-14] MEDS: cloNIDine HCl 0.1 MG Tablet PO (01:35)
[2021-04-14] MEDS: LORazepam 1 MG Tablet PO ×3 (01:35→08:52)
[2021-04-14 02:30] VITALS: BP 139/89; PULSE 93; RESP 16; TEMP 36.6; O2SAT 96
[2021-04-14] MEDS: Buprenorphine HCl 2 MG TAB.SUBL SL (05:12)
[2021-04-14 08:24] LABS: HIV - WCH Non-Reactive (Nonreactive)
[2021-04-14] MEDS: Folic Acid 1 MG Tablet PO (08:53)
[2021-04-14] MEDS: Thiamine Hydrochloride 100 MG Tablet PO (08:53)
[2021-04-14] MEDS: Nicotine Polacrilex 2 MG GUM PO (08:54)
[2021-04-14] MEDS: APIXABAN 2.5 MG TABLET PO (08:54)
[2021-04-14] MEDS: Gabapentin 300 MG Capsule PO (08:56)
[2021-04-14] MEDS: Methocarbamol 750 MG Tablet 1500 MG PO (08:56)
[2021-04-14 09:04] VITALS: BP 130/67; PULSE 92; RESP 16; TEMP 36.7; O2SAT 100
--- NOTE | 2021-04-14 10:04 | ADDICTION ---
This sheet writer met with PT to conduct ASAM, MSE, DUDIT assessments and to plan for d/c. PT A+Ox4. All assessments completed, faxed to [facility] and placed in PT's chart. PT to admit to [facility] in [place] following d/c from [facility] for residential treatment. PT called his insurance company for transportation.
--- NOTE | 2021-04-14 11:05 | NURSING ---
Patient out to desk and stated that Mae sent him a text and that his ride will be here in 3 minutes. Pt informed by this nurse that we are still waiting for the MD to enter the discharge order and instructions. Patient called Mae again and per patient the ride will only wait for 5 minutes before leaving. Text sent to MD, awaiting response. Patient stated that he was just going to leave and not miss his ride.
--- NOTE | 2021-04-14 11:10 | NURSING ---
Dr. Velazquez returned call, aware that patient did not wait for discharge order/instructions and has left the unit.
--- NOTE | 2021-04-14 11:11 | PCM.DC ---
Discharge Instructions Diet Discharge Diet: No restrictions Activity Discharge Activity: Return to Normal Activity Dressing / Incision Call your doctor if you observe: Fever of 101 or Higher, Shortness of breath, Dizziness, Fainting spells, Swelling in the ankles, Chest pain and Increased palpitations (irregular heartbeat) Follow Up Care Test Results: Test results from this visit will be discussed in further detail at your follow-up appointment, if applicable. Discharge Plan Admission Admit Date/Time: 04/11/21 14:16 Primary Reason for Your Visit: Opiate withdrawal Attending Provider: Levy Velazquez Primary Care Provider: Care Physician,Lorrie Primary Instructions Patient Instructions: Hepatitis C: Protecting Your Liver, Hepatitis C: Know the Facts, Hepatitis C: Getting Support, ED Opioid Withdrawal Discharge Orders/Prescriptions Referrals / Follow Up: Care Physician,No Primary [Primary Care Provider] - Disposition Disposition (needs filled in before D/C Order can be placed): Home, self care
--- NOTE | 2021-04-14 11:20 | PCM.DC.SUM ---
Providers Date of Admission: 04/11/21 Primary Care Physician: No Primary Care Phys Reason For Visit: OPIATE WITHDRAWAL SYNDROME Diagnosis Discharge Diagnosis (1) Heroin withdrawal: Status: Acute Code(s): F11.23 - Opioid dependence with withdrawal Hospital Course Operations None Procedures None Summary of Care Provided Minutes Spent on Discharge: 35 Hospital Course: Per HPI: LEVY BROUSSARD, is a 31 M with history of chronic opioid and benzodiazepine dependence and tolerance came to ER for stabilization of opioid withdrawal symptoms. He uses 3 to 4 mg IV heroin and fentanyl together in both forearms on posterior aspect along his snorting 4 mg Xanax. Patient also smokes cigarettes 1 pack/day. Sometimes e-cigarettes and cigar and marijuana use. Denies fever or chills. He has soft tissue swelling and thrombosed vein on posterior aspect of both forearms. Currently patient having aches and pain, sweating, restlessness and mild diarrhea. Heart rate 86/min, blood pressure 140/73. Hospital Course: 1. Acute withdrawal with polysubstance abuse and acute benzodiazepine withdrawal/chronic right upper extremity venous [id number] male presented from home requesting detox from opiates and his benzodiazepine use. He was doing about 4 mg of Xanax every day as well as injecting 3 to 4 mg of IV heroin. 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 This will need to be followed up as an outpatient. He was accepted to an inpatient rehab facility and was discharged today, he says that he did not have any symptoms of withdrawal overnight and felt well enough to be discharged. Physical Exam Const alert, oriented x3 and no apparent distress HEENT normocephalic and moist oral mucous membranes Eyes EOMs intact bilaterally and conjunctivae normal Neck supple and no JVD Resp normal respiratory effort, no retractions, no use of accessory muscles and clear to auscultation bilaterally Auscultation: Negative for crackles, rales, rhonchi or wheezes Cardio regular rate, regular rhythm, S1 normal heart sound, S2 normal heart sound and no murmurs GI soft to palpation, non-tender and non-distended; Negative for hepatosplenomegaly Extremity no clubbing, cyanosis or edema Skin no rashes or lesions noted Neuro no focal motor deficits and no sensory deficits noted ABG / Lab / Microbiology Data Result Diagrams: 04/11/21 11:45 04/11/21 11:45 Laboratory: Laboratory Results - last 24 hr 04/11/21 11:45 HIV 1&2 Antibody Non-Reactive D/C Instructions Discharge Diet: No restrictions Call your doctor if you observe: Fever of 101 or Higher, Shortness of breath, Dizziness, Fainting spells, Swelling in the ankles, Chest pain and Increased palpitations (irregular heartbeat) Meaningful Use Info Meaningful Use Diagnoses (Choose all that apply): None applicable Discharge Plan Admission Admit Date/Time: 04/11/21 14:16 Primary Reason for Your Visit: Opiate withdrawal Attending Provider: Levy Velazquez Primary Care Provider: Care Physician,No Primary Instructions Patient Instructions: Hepatitis C: Protecting Your Liver, Hepatitis C: Know the Facts, Hepatitis C: Getting Support, ED Opioid Withdrawal Discharge Orders/Prescriptions Referrals / Follow Up: Care Physician,No Primary [Primary Care Provider] - Disposition Disposition (needs filled in before D/C Order can be placed): Home, self care Charges/Coding Visit Charges Inpatient E&M: 08089 Disch Hosp
--- NOTE | 2021-04-14 11:30 | NURSING ---
pt left without discharge
== END 2021-04-14 11:20 | disposition home or self-care (01) | DRG 773 ==
LOC: ED 11:22 → MS3 18:23
PROVIDERS: Family Medicine; Admitting Provider Internal Medicine; Emergency Provider Emergency Medicine; Visit Provider Family Medicine
DX: F11.23 Opioid dependence with withdrawal (principal); I80.8 Phlebitis and thrombophlebitis of other sites; F17.210 Nicotine dependence, cigarettes, uncomplicated; F12.90 Cannabis use, unspecified, uncomplicated; B19.20 Unspecified viral hepatitis C without hepatic coma; F13.20 Sedative, hypnotic or anxiolytic dependence, uncomplicated
CPT/HCPCS: 36415; 80053; 80307; 82077; 85025; 86703; 93970; 97802; 99284; H0012